=== PATIENT | female | born 1990 | race Hispanic/Latino ===

== ENCOUNTER 2018-01-28 09:37 | Emergency (ER) | payer OTHER, SELFPAY ==
--- NOTE | 2018-01-28 10:39 | RAD REPORT ---
EXAM DESCRIPTION: RAD - Foot Right 3 View - 01/28/2018 10:32 am CLINICAL HISTORY: Midfoot pain and swelling. COMPARISON: None. FINDINGS: Linear lucency is present involving the base of the second metatarsal compatible with a fr acture. Lucency is also present at the base of the fourth metatarsal, also suspicious for fracture. A Lisfranc dislocation is not seen. Soft tissue swelling along the dorsum of the mid and forefoot. Non -emergent MR imaging could be obtained for further evaluation of Lisfranc ligament integrity.
[2018-01-28 10:41] LABS: Urine Blood TRACE (NEG); Urine Glucose NEGATIVE (NEG); Urine Protein NEGATIVE (NEG); Urine pH 5.5 (5.0-7.0)
--- NOTE | 2018-01-28 11:08 | ER ---
Nurse's Notes [facility] Name: Stephanie Cao Age: 27 yrs Sex: Female : 1990 Arrival Date: 01/28/2018 Time: 09:40 Bed 15 Private MD: Diagnosis: Fracture of metatarsal bone(s)-Right Second and Fourth Presentation: 01/28 09:42 Presenting complaint: Patient states: R ankle pain since last night after falling when ss R knee gave out. Transition of care: patient was not received from another setting of care. Onset of symptoms was January 27, 2018. Care prior to arrival: None. 09:42 Method Of Arrival: Wheelchair ss 09:42 Acuity: KOSTA 4 ss Triage Assessment: 10:29 General: Appears in no apparent distress. Injury Description: Bruise sustained to right iw foot. 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 - Social history:: Smoking status: Patient/guardian denies using tobacco. Screenin:38 Abuse screen: Denies threats or abuse. Denies injuries from another. Nutritional iw screening: No deficits noted. Tuberculosis screening: No symptoms or risk factors identified. Fall Risk Fall in past 12 months (25 points). Assessment: 10:38 General: Appears in no apparent distress. Behavior is calm, cooperative. Pain: iw Complains of pain in right foot. Neuro: Level of Consciousness is awake, alert, obeys commands, Oriented to person, place, time, situation. Musculoskeletal: Range of motion: limited in right ankle Swelling present in right foot. 10:59 Reassessment: Patient appears in no apparent distress at this time. Patient and/or iw family updated on plan of care and expected duration. Pain level reassessed. Vital Signs: 09:44 BP 119 / 81; Pulse 60; Resp 16; Pulse Ox 99% on R/A; Weight 77.11 kg; Height 5 ft. 0 ss in. (152.40 cm); Pain 2/10; 09:44 Body Mass Index 33.20 (77.11 kg, 152.40 cm) ss ED Course: 09:40 Patient arrived in ED. as 09:43 Triage completed. ss 09:44 Arm band placed on right wrist. ss 09:47 Daljit Garcia PA is PHCP. cp 09:47 Adrian Villa MD is Attending Physician. cp 10:03 Sonya Martin, RN is Primary Nurse. iw 10:20 Urine collected: clean catch specimen, clear. mh5 10:27 X-ray completed. Portable x-ray completed in exam room. Patient tolerated procedure jb2 well. 10:32 XRAY Foot RIGHT 3 View In Process Unspecified. EDMS 10:35 Patient has correct armband on for positive identification. iw 11:06 Toni Corrigan MD is Referral Physician. cp 11:29 No provider procedures requiring assistance completed. Patient did not have IV access iw during this emergency room visit. Administered Medications: No medications were administered Outcome: 11:07 Discharge ordered by MD. cp 11:29 Discharged to home via wheelchair, with crutches, with family. iw 11:29 Condition: good 11:29 Discharge instructions given to patient, family, Instructed on discharge instructions, follow up and referral plans. medication usage, Demonstrated understanding of instructions, follow-up care, medications, Prescriptions given X 11:29 Prescriptions given X 2. iw 11:30 Patient left the ED. iw Signatures: Dispatcher [employer] EDKY Jeovanny Jaimes [email or web address] Bernarda Bright Irene, RN RN Latricia Hernandez RN RN Daljit Garcia PA PA cp Martinez, [facility]
--- NOTE | 2018-01-28 11:08 | EDPHYS ---
Physician Documentation [facility] Name: Stephanie Cao Age: 27 yrs Sex: Female : 1990 Arrival Date: 01/28/2018 Time: 09:40 Bed 15 Private MD: ED Physician Adrian Villa HPI: 01/28 10:00 This 27 yrs old Female presents to ER via Wheelchair with complaints of Foot cp Injury. 10:00 The patient presents with an injury, pain, that is acute, swelling, tenderness. The cp complaints affect the right foot. Context: The problem was sustained at home, resulted from the patient falling, the patient can partially bear weight, the patient is able to ambulate, with moderate difficulty. 10:00 Onset: The symptoms/episode began/occurred last night. Associated signs and symptoms: cp Pertinent negatives calf tenderness, numbness, tingling. 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 - Social history:: Smoking status: Patient/guardian denies using tobacco. ROS: 10:05 Constitutional: Negative for body aches, chills, fever, poor PO intake. cp 10:05 Eyes: Negative for injury, pain, redness, and discharge. cp 10:05 Cardiovascular: Negative for chest pain, palpitations. 10:05 Respiratory: Negative for cough, shortness of breath, wheezing. 10:05 Abdomen/GI: Negative for abdominal pain, nausea, vomiting, and diarrhea. 10:05 MS/extremity: Positive for ecchymosis, pain, swelling, tenderness, of the right foot, Negative for paresthesias. 10:05 Skin: Negative for cellulitis, rash. 10:05 All other systems are negative. Exam: 10:12 Constitutional: The patient appears in no acute distress, alert, awake, non-toxic, well cp developed, well nourished. 10:12 Head/Face: Normocephalic, atraumatic. cp 10:12 Eyes: Periorbital structures: appear normal, Conjunctiva: normal, no exudate, no injection, Lids and lashes: appear normal, bilaterally. 10:12 ENT: External ear(s): are unremarkable, Nose: is normal, Mouth: is normal. 10:12 Chest/axilla: Inspection: normal. 10:12 Cardiovascular: Rate: normal, Rhythm: regular. 10:12 Respiratory: the patient does not display signs of respiratory distress, Respirations: normal, no use of accessory muscles, no retractions, no splinting, no tachypnea, labored breathing, is not present. 10:12 Abdomen/GI: Inspection: abdomen appears normal, Bowel sounds: active, all quadrants. 10:12 Back: pain, is absent, ROM is normal. 10:12 Musculoskeletal/extremity: Extremities: grossly normal except: noted in the right foot: ecchymosis, pain, swelling, tenderness, Perfusion: the extremity is normally perfused throughout, Sensation intact. 10:12 Skin: cellulitis, no rash present. Vital Signs: 09:44 BP 119 / 81; Pulse 60; Resp 16; Pulse Ox 99% on R/A; Weight 77.11 kg; Height 5 ft. 0 ss in. (152.40 cm); Pain 2/10; 09:44 Body Mass Index 33.20 (77.11 kg, 152.40 cm) ss Procedures: 11:28 Splinting: Splint applied to right foot using Orthoglass splint, non-wt bearing cp posterior lower leg. applied by tech. Examined by me, post splint application: neurovascular intact, Patient tolerated well. MDM: 09:47 Patient medically screened. cp 11:00 Data reviewed: vital signs, nurses notes, radiologic studies, plain films, and as a cp result, I will discharge patient. 11:00 Counseling: I had a detailed discussion with the patient and/or guardian regarding: the cp historical points, exam findings, and any diagnostic results supporting the discharge/admit diagnosis, radiology results, the need for outpatient follow up, a orthopedic surgeon, to return to the emergency department if symptoms worsen or persist or if there are any questions or concerns that arise at home. 01/28 10:30 Order name: Urine Dipstick--Ancillary (enter results); Complete Time: 10:42 bd 01/28 10:43 Interpretation: Normal except: UBLD TRACE. cp 01/28 10:30 Order name: Urine --Ancillary (enter results); Complete Time: 10:42 bd 01/28 09:53 Order name: XRAY Foot RIGHT 3 View; Complete Time: 10:42 cp 01/28 09:53 Order name: Urine Test (obtain specimen); Complete Time: 10:17 cp 01/28 09:53 Order name: Urine Dipstick-Ancillary (obtain specimen); Complete Time: 10:17 cp 01/28 10:43 Order name: Splint - Posterior Leg; Complete Time: 18:47 cp 01/28 10:43 Order name: Crutches; Complete Time: 18:47 cp Administered Medications: No medications were administered Disposition: 01/28/18 11:07 Discharged to Home. Impression: Fracture of metatarsal bone(s) - Right Second and Fourth. - Condition is Stable. - Discharge Instructions: Metatarsal Fracture, Undisplaced. - Prescriptions for Ibuprofen 800 mg Oral Tablet - take 1 tablet by ORAL route every 8 hours As needed take with food; 30 tablet. Tylenol- Codeine #3 300-30 mg Oral Tablet - take 2 tablets by ORAL route every 6 hours As needed; 20 tablet. - Medication Reconciliation Form, Thank You Letter, Antibiotic Education, Prescription Opioid Use form. - Follow up: Toni Corrigan MD; When: 2 - 3 days; Reason: right foot fracture. - Problem is new. - Symptoms have improved. Addendum: 01/29/2018 13:16 Co-signature as Attending Physician, Adrian Villa MD. g s Signatures: Dispatcher [employer] Sonya Hernandez RN RN iw Smirch, Shelby, RN RN ss Page, Corey, PA PA cp Adrian Villa MD MD
== END 2018-01-28 11:30 | disposition home or self-care (01) ==
LOC: ER 09:37
PROC: 2W3QX1Z Immobilization of Right Lower Leg using Splint (ICD-10-PCS; principal; 2018-01-28)
DX: S92.324A Nondisplaced fracture of second metatarsal bone, right foot, initial encounter for closed fracture (principal); S92.344A Nondisplaced fracture of fourth metatarsal bone, right foot, initial encounter for closed fracture; W18.30XA Fall on same level, unspecified, initial encounter; Y93.9 Activity, unspecified; Y92.009 Unspecified place in unspecified non-institutional (private) residence as the place of occurrence of the external cause
CPT/HCPCS: 81003; 81025; 99283